=== PATIENT | male | born 1970 | race Two or more races ===

== ENCOUNTER → 2023-02-09 | Day surgery (SDC) | payer OTHER | END | disposition home or self-care (01) | LOC: ADM 02-07 14:15 → AMB-ENDOS 09:19 | PROVIDERS: ATTEND Colon & Rectal Surgery | DX: Z12.11 Encounter for screening for malignant neoplasm of colon (principal); Z12.12 Encounter for screening for malignant neoplasm of rectum; R19.4 Change in bowel habit; K64.8 Other hemorrhoids ==